=== PATIENT | male | born 1960 | race Two or more races ===

== ENCOUNTER 2022-08-05 07:34 | Outpatient (CLI) | payer OTHER | END 2022-08-05 07:38 | disposition home or self-care (01) | LOC: NUCLEAR 07:34 | PROVIDERS: ATTEND Physical Medicine & Rehabilitation | DX: I73.9 Peripheral vascular disease, unspecified (principal) ==

== ENCOUNTER 2022-08-07 09:51 | Outpatient (CLI) | payer OTHER | END 2022-08-07 10:03 | disposition home or self-care (01) | LOC: MRI 09:51 | PROVIDERS: ATTEND Physical Medicine & Rehabilitation | DX: M25.571 Pain in right ankle and joints of right foot (principal); R22.41 Localized swelling, mass and lump, right lower limb | CPT/HCPCS: 73723; Q9965; 73721 ==